=== PATIENT | female | born 1985 | race African-American/Black ===

== ENCOUNTER 2020-09-10 23:47 | Emergency (ER) | payer MEDICAID, OTHER ==
[~2020-09-10] VITALS: Ht 165.1 cm; Wt 81.6 kg
[2020-09-11] MEDS ORDERED: HYDROcodone-ACET 7.5/325MG TAB PO ONE (00:15)
[2020-09-11] MEDS ORDERED: KETOROLAC TROMETH 30 MG/ML 1ML VIAL IV ONE (00:15)
[2020-09-11 00:46] VITALS: BP 136/91
== END 2020-09-11 04:40 | disposition home or self-care (01) ==
LOC: ER 23:47
DX: S06.0X1A Concussion with loss of consciousness of 30 minutes or less, initial encounter (principal); S30.0XXA Contusion of lower back and pelvis, initial encounter; Z32.02 Encounter for pregnancy test, result negative; V86.59XA Driver of other special all-terrain or other off-road motor vehicle injured in nontraffic accident, initial encounter; Y93.89 Activity, other specified; Y92.89 Other specified places as the place of occurrence of the external cause; Y99.8 Other external cause status
CPT/HCPCS: 70450; 72110; 72125; 72170; 81025; 96374; 99285; J1885